=== PATIENT | male | born 1990 ===

== ENCOUNTER 2018-03-28 15:21 | Emergency (ER) | payer OTHER ==
[~2018-03-28] VITALS: Ht 172.7 cm; Wt 102.1 kg
[2018-03-28] MEDS ORDERED: Tylenol325 MG PO (17:19)
[2018-03-28] MEDS ORDERED: IBUP600 PO (17:19)
== END 2018-03-28 17:32 | disposition home or self-care (01) ==
LOC: ER 15:21
DX: S51.012A Laceration without foreign body of left elbow, initial encounter (principal); S01.312A Laceration without foreign body of left ear, initial encounter; S20.219A Contusion of unspecified front wall of thorax, initial encounter; V49.9XXA Car occupant (driver) (passenger) injured in unspecified traffic accident, initial encounter
CPT/HCPCS: 12001; 70450; 71046; 90471; 90714; 99284-25